=== PATIENT | male | born 1995 | race Caucasian/White ===

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

== ENCOUNTER → 2017-01-14 | Outpatient (CLI) | payer BC ==
--- NOTE | 2017-01-14 14:49 | RAD ---
Examination: Left foot, three views History: Pain 5th digit Comparison reference 11/28/2016 Findings: There is additional healing callus at the 5th metatarsal fracture line. The fracture is les s distinct than before. The defect remains visible however and bony union is considered incomplete. N o new abnormality is noted. Impression: Additional healing of 5th metatarsal fracture. Reported By:
== END ==
LOC: RAD 12:27
PROVIDERS: ATTEND Specialist
DX: M79.672 Pain in left foot (principal); S92.352D Displaced fracture of fifth metatarsal bone, left foot, subsequent encounter for fracture with routine healing; X58.XXXD Exposure to other specified factors, subsequent encounter
CPT/HCPCS: 73630

== ENCOUNTER → 2017-06-13 | Outpatient (CLI) | payer BC ==
[2017-06-13 15:08] LABS: FREE T4 (FREE THYROXINE) 1.1 ng/dL (0.76-1.46); T4 (THYROXINE) 9.7 ug/dL (4.7-13.3); TSH (3RD GENERATION) 1.437 uIU/mL (0.358-3.74)
== END ==
LOC: LAB 14:25
PROVIDERS: ATTEND Psychiatry & Neurology Neurology
DX: R94.6 Abnormal results of thyroid function studies (principal)
CPT/HCPCS: 36415; 84436; 84439; 84443; 84445; 84481; 86800